=== PATIENT | female | born 1985 | race Caucasian/White ===

== ENCOUNTER 2021-04-02 20:17 | Emergency (ER) | payer OTHER ==
[2021-04-02 20:25] VITALS: BP 123/84; PULSE 89; TEMP 98.7; BMI 38.9
== END 2021-04-02 21:33 | disposition home or self-care (01) ==
LOC: FER 20:17 → SUPCPDRO 20:17 → FER 21:33
DX: R26.81 Unsteadiness on feet (principal)
CPT/HCPCS: 70450-TC; 99284-25

== ENCOUNTER 2022-10-29 16:34 | Emergency (ER) | payer OTHER ==
[2022-10-29 16:50] VITALS: BP 129/89; PULSE 87; RESP 18; TEMP 97.8; BMI 40.2
[2022-10-29] MEDS ORDERED: FAMOTIDINE 20 MG/50 ML IVPB 20 MG/50 ML MG IVPB ONE ×2 (17:01→17:17)
[2022-10-29] MEDS ORDERED: SODIUM CHLORIDE 0.9% 1000 ML INFUS.BAG IV ONE (17:01)
[2022-10-29] MEDS ORDERED: ONDANSETRON 4 MG/2 ML VIAL IVPUSH ONE (17:01)
[2022-10-29] MEDS ORDERED: ACETAMINOPHEN 1000 MG/100 ML BAG IVPB ONE (17:01)
[2022-10-29] MEDS ORDERED: ACETAMINOPHEN INJECTION 100 ML IVPB ONE (17:17)
[2022-10-29] MEDS ORDERED: ONDANSETRON 4 MG/2 ML VIAL ONE (17:17)
[2022-10-29 17:36] LABS: HEMOGLOBIN 13.4 G/dL (10.7-15.3); MCH 30.6 pg (25.7-33.7); MCHC 33.4 g/dl (32.0-36.0); MEAN CELL VOLUME 91.8 fl (80-96); MEAN PLT VOLUME 7.8 fl (7.5-11.1); PLATELET COUNT 396.1 10^3/uL (134-434); RBC 4.36 10^6/uL (3.60-5.2); RDW 13.5 % (11.6-15.6); WHITE BLOOD COUNT 12.5 10^3/uL (4.0-10.8)
[2022-10-29 17:41] LABS: ALBUMIN 3.8 g/dl (3.4-5.0); BILIRUBIN,TOTAL 0.6 mg/dl (0.2-1); CALCIUM 8.9 mg/dl (8.5-10); CREATININE 0.8 mg/dl (0.55-1.3); POTASSIUM 3.7 mmol/L (3.5-5.1); TOT PROT 7.2 g/dl (6.4-8.2)
[2022-10-29] MEDS ORDERED: MAG HYDROX/AL HYDROX/SIMETH 30 ML UNIT-DOSE CUP PO ONE (19:03)
[2022-10-29] MEDS ORDERED: MAG HYDROX/AL HYDROX/SIMETH 30 ML UNIT-DOSE CUP ONE (19:13)
== END 2022-10-29 20:20 | disposition home or self-care (01) ==
LOC: FER 16:34
PROC: 3E033GC Introduction of Other Therapeutic Substance into Peripheral Vein, Percutaneous Approach (ICD-10-PCS; principal; 2022-10-29)
DX: R10.13 Epigastric pain (principal)
CPT/HCPCS: 36415; 74176-TC; 76705-TC; 80053; 83690; 84703; 85027; 99285-25; C9803-CS; U0003; U0005